=== PATIENT | female | born 2000 | race Caucasian/White ===

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

== ENCOUNTER 2022-05-13 11:17 | Emergency (ER) | payer OTHER, SELFPAY ==
[2022-05-13 11:22] VITALS: BP 120/61; PULSE 78; RESP 20; TEMP 36.8; O2SAT 100
--- NOTE | 2022-05-13 11:22 | ED.URI ---
HPI - URI/Sore Throat General Chief Complaint: Upper Respiratory Infection Stated Complaint: sore throat Time Seen by Provider: 05/13/22 11:22 Source: patient and RN notes reviewed History of Present Illness HPI Narrative: Patient is a 21-year-old female who presents the urgent care with complaints of sore throat, bilateral ear pressure, body aches and right lymph node swelling. Patient states that started 3 days ago and she has had 2 negative COVID test at home. Patient has been taking ibuprofen. Denies any recent fevers over the last 24 hours. Denies any nausea or vomiting. Denies of any known exposures however she states that her father has also been ill. No other acute complaints. No acute distress noted. Patient aware of the plan of care. Some parts of this dictation were generated by voice recognition software and may contain typographical and/or grammatical inaccuracies. Related Data Allergies Allergy/AdvReac Type Severity Reaction Status Date / Time No Known Allergies Allergy Verified 05/13/22 11:35 Review of Systems Review of Systems: CONSTITUTIONAL: Denies fever, chills, or sweats. EYES: Denies visual changes, redness, or discharge. ENT: Reports of a sore throat, bilateral ear pain and mild congestion CARDIOVASCULAR: Denies chest pain, palpitations, or edema. RESPIRATORY: Denies cough or dyspnea. GASTROINTESTINAL: Denies abdominal pain, nausea, vomiting, or diarrhea. GENITOURINARY: Denies dysuria or hematuria. SKIN: Denies rash or itching. MUSCULOSKELETAL: Denies back pain, joint pain. Reports of body aches NEUROLOGIC: Denies headache, numbness, or weakness. All other systems reviewed are negative, except as documented in HPI. PMFSH Social History Social History Gender identity (if verbalized by the patient): Female Comments At the time of my signature, I reviewed and agree with the nursing past medical, surgical, social, and family history. There is no relevant family history pertinent to the patient complaint. Exam Narrative: GENERAL: This is a well-nourished, well-developed patient, in no apparent distress. HEAD: normocephalic, atraumatic. EYES: PERRL. Sclera clear/white. Vision is grossly intact. EARS: External ears normal, auditory canals clear and without drainage, TMs normal without perforation. Hearing grossly intact. NOSE: External nose normal with no obvious nasal discharge, nares without redness, no rhinorrhea. THROAT: Mucous membranes moist, moderate bilateral erythema/edema to tonsils without exudate. Moderate postnasal drainage NECK: Neck supple, mild nontender right submandibular lymphadenopathy CARDIOVASCULAR: Regular rate and rhythm without murmurs, gallops, or rubs. RESPIRATORY: Clear to auscultation. Breath sounds equal bilaterally. No wheezes, rales, or rhonchi. SKIN: warm, intact with no suspicious lesions or rash, good texture and turgor. NEURO: awake, alert, and oriented to person, place and time. There were no obvious focal neurologic abnormalities. EXTREMITIES: No clubbing, cyanosis, or edema. Course Course Level of Care: Express Care Visit Vital Signs Vital signs: Vital Signs Temperature 98.3 F 05/13/22 11:22 Pulse Rate 78 05/13/22 11:22 Respiratory Rate 20 05/13/22 11:22 Blood Pressure 120/61 05/13/22 11:22 Pulse Oximetry 100 05/13/22 11:22 Oxygen Delivery Room Air 05/13/22 11:22 Temperature 98.3 F 05/13/22 11:22 Pulse Rate 78 05/13/22 11:22 Respiratory Rate 20 05/13/22 11:22 Blood Pressure 120/61 05/13/22 11:22 Pulse Oximetry 100 05/13/22 11:22 Oxygen Delivery Room Air 05/13/22 11:22 Reviewed MDM - URI/Sore Throat MDM Narrative Medical decision making narrative: Reviewed lab results with the patient. She is aware that rapid strep and rapid COVID were both negative. Educated patient on culture for strep and we will call within 72 hours of cultures positive antibiotics are necessary. Advised patient complete the oral
== END 2022-05-13 12:04 | disposition home or self-care (01) ==
PROVIDERS: Emergency Provider Nurse Practitioner Family
DX: J02.9 Acute pharyngitis, unspecified (principal); Z20.822 Contact with and (suspected) exposure to COVID-19
CPT/HCPCS: 87081; 87426; 87880; 99213; C9803; G0463